=== PATIENT | male | born 1985 | race Caucasian/White ===

== ENCOUNTER 2023-04-24 08:06 | Outpatient (RCR) | payer OTHER, SELFPAY ==
[2023-03-29 05:29] LABS: Testosterone, Adult Male 1024 ng/dL (300-1080)
[2023-04-24 08:36] LABS: Basophils Absolute Auto 0.02 K/uL (0.00-0.30); Basophils Percent Auto 0.3 % (0.0-3.0); Eosinophils Absolute Auto 0.13 K/uL (0.00-0.50); Hematocrit 53.2 % (37.0-53.0); Hemoglobin* 17.7 gm/dL (13.5-17.5); Lymphocytes Absolute Auto 1.56 K/uL (0.90-2.90); Lymphocytes Percent Auto 24.1 % (20-44); Mean Corpuscular HGB Conc 33 gm/dL (32-36); Mean Corpuscular Hemoglobin 30 pg (26-34); Mean Corpuscular Volume 89 fL (80-100); Neutrophils Absolute Auto 4.37 K/uL (1.7-7.0); Neutrophils Percent Auto 67.6 % (42.0-72.0); Platelet Count* 238 K/uL (140-440); RDW Coefficient of Variation % 12.9 % (11.5-15.5); White Blood Count* 6.47 K/uL (4.50-11.00)
[2023-04-24 08:43] LABS: Slide Review Reflex No
[2023-04-26 14:12] LABS: Testosterone, Adult Male 509 ng/dL (300-1080)
== END 2024-04-23 08:09 | disposition home or self-care (01) ==
LOC: LAB 08:06
PROVIDERS: PCP Family Medicine; Visit Provider Nurse Practitioner Family
DX: E29.1 Testicular hypofunction (principal)
CPT/HCPCS: 36415; 84403; 85025